=== PATIENT | female | born 1970 ===

== ENCOUNTER 2017-06-01 09:08 | Emergency (ER) | payer OTHER ==
[2017-06-01 09:20] VITALS: BP 123/78; PULSE 73; RESP 16; TEMP 98.1; O2SAT 98
--- NOTE | 2017-06-01 09:38 | C.PDOC ---
History Of Present Illness 47 y/o female presents to ED with complaints of pain and swelling to right forearm for 3 days. 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 Pain is 5/10 , non radiating with associated swelling. . Patient denies trauma, fever, chills, n/v/d or any other complaints at this time. Time Seen by Provider: 06/01/17 09:23 Chief Complaint (Nursing): Upper Extremity Problem/Injury History Per: Patient History/Exam Limitations: no limitations Onset/Duration Of Symptoms: Days Current Symptoms Are (Timing): Still Present Quality: "Pain" Exacerbating Factor(s): Movement Past Medical History Reviewed: Historical Data, Nursing Documentation, Vital Signs Vital Signs: Last Vital Signs Temp 98.1 F 06/01/17 09:18 Pulse 73 06/01/17 09:18 Resp 16 06/01/17 09:18 BP 123/78 06/01/17 09:18 Pulse Ox 98 06/01/17 12:35 - Medical History PMH: Gastritis, Gall Bladder Disease Denies: Chronic Kidney Disease Surgical History: Cholecystectomy - [facility] Procedures EXTRACTION OF ENDOMETRIUM, VIA OPENING, DIAGN (08/28/16) Family History: States: Unknown Family Hx - Social History Hx Tobacco Use: No Hx Alcohol Use: No Hx Substance Use: No - Immunization History Hx Tetanus Toxoid Vaccination: No Hx Influenza Vaccination: Yes Hx Pneumococcal Vaccination: No Review Of Systems Except As Marked, All Systems Reviewed And Found Negative. Constitutional: Negative for: Fever, Chills Gastrointestinal: Negative for: Nausea, Vomiting, Diarrhea Musculoskeletal: Positive for: Arm Pain Skin: Negative for: Rash, Bruising Physical Exam - Physical Exam Appears: Non-toxic, No Acute Distress Skin: Normal Color, Warm Head: Atraumatic, Normacephalic Oral Mucosa: Moist Extremity: Tenderness (Tenderness to volar aspect of forearm), Capillary Refill (<2 seconds), No Deformity, Swelling (Swelling to volar aspect of forearm), Other (Full ROM of forearm bilateral) Neurological/Psych: Oriented x3, Normal Motor, Normal Sensation, Normal Reflexes ED Course And Treatment O2 Sat by Pulse Oximetry: 98 (RA) Pulse Ox Interpretation: Normal Medical Decision Making Medical Decision Making: Patient was given Motrin, Tylenol and forearm was put in yulisa wrap. Patient discharged and advised to rest and ice elevation Note for work was given Disposition Counseled Patient/Family Regarding: Diagnosis, Need For Followup, Rx Given - Disposition Referrals: [facility] [Outside] Disposition: HOME/ ROUTINE Disposition Time: 09:57 Condition: STABLE Prescriptions: Ibuprofen [Motrin] 600 mg PO TID #15 tab Instructions: RICE Therapy (ED) Forms: Gen Discharge Inst Turkish, Work Excuse - POA Present On Arrival: None - Clinical Impression Clinical Impression: Muscle strain - Scribe Statement The provider has reviewed the documentation as recorded by the Annemarieibluis antonio Hill All medical record entries made by the Annemarieibluis antonio were at my direction and personally dictated by me. I have reviewed the chart and agree that the record accurately reflects my personal performance of the history, physical exam, medical decision making, and the department course for this patient. I have also personally directed, reviewed, and agree with the discharge instructions and disposition.
== END 2017-06-01 10:04 | disposition home or self-care (01) ==
LOC: C.ER 09:08
DX: S56.911A Strain of unspecified muscles, fascia and tendons at forearm level, right arm, initial encounter (principal); X50.9XXA Other and unspecified overexertion or strenuous movements or postures, initial encounter; Y93.89 Activity, other specified; Y92.89 Other specified places as the place of occurrence of the external cause

== ENCOUNTER 2017-12-24 08:14 | Emergency (ER) | payer OTHER ==
[2017-12-24 08:53] VITALS: BMI 23.3
--- NOTE | 2017-12-24 09:00 | C.PDOC ---
Time Seen by Provider: 12/24/17 08:37 Chief Complaint (Nursing): Chest Pain Past Medical History Vital Signs: Last Vital Signs Temp 100.2 F H 12/24/17 08:26 Pulse 102 H 12/24/17 08:26 Resp 18 12/24/17 08:26 BP 123/84 12/24/17 08:26 Pulse Ox 95 12/24/17 08:26 - Medical History PMH: Gastritis, Gall Bladder Disease Denies: Chronic Kidney Disease Surgical History: Cholecystectomy - [facility] Procedures EXTRACTION OF ENDOMETRIUM, VIA OPENING, DIAGN (08/28/16) Family History: States: Unknown Family Hx - Social History Hx Tobacco Use: No Hx Alcohol Use: No Hx Substance Use: No - Immunization History Hx Tetanus Toxoid Vaccination: No Hx Influenza Vaccination: Yes Hx Pneumococcal Vaccination: No ED Course And Treatment O2 Sat by Pulse Oximetry: 95 Disposition - Disposition
--- NOTE | 2017-12-24 09:01 | C.PDOC ---
History Of Present Illness 47 year old female presents to the ED c/o cough, chest pain, sore throat, subjective fever for the past 4 days. Patient reports while at work she inhaled a lot of dust after which she started to feel her symptoms. Patient states she has no prior history of asthma. Patient denies SOB, nausea, vomit, diarrhea, abdominal pain. Time Seen by Provider: 12/24/17 08:37 History Per: Patient History/Exam Limitations: no limitations Onset/Duration Of Symptoms: Days Current Symptoms Are (Timing): Still Present Recent travel outside of the [place]: No Additional History Per: Patient Past Medical History Reviewed: Historical Data, Nursing Documentation, Vital Signs Vital Signs: Last Vital Signs Temp 100.2 F H 12/24/17 08:26 Pulse 102 H 12/24/17 08:26 Resp 18 12/24/17 08:26 BP 123/84 12/24/17 08:26 Pulse Ox 95 12/24/17 09:21 - Medical History PMH: Gastritis, Gall Bladder Disease Denies: Chronic Kidney Disease Surgical History: Cholecystectomy - [place] Procedures EXTRACTION OF ENDOMETRIUM, VIA OPENING, DIAGN (08/28/16) Family History: States: Unknown Family Hx - Social History Hx Tobacco Use: No Hx Alcohol Use: No Hx Substance Use: No - Immunization History Hx Tetanus Toxoid Vaccination: No Hx Influenza Vaccination: Yes Hx Pneumococcal Vaccination: No Review Of Systems Constitutional: Positive for: Fever. Negative for: Chills ENT: Positive for: Throat Pain. Negative for: Nose Congestion Cardiovascular: Positive for: Chest Pain Respiratory: Positive for: Cough. Negative for: Shortness of Breath Gastrointestinal: Negative for: Nausea, Vomiting, Abdominal Pain Musculoskeletal: Negative for: Neck Pain Skin: Negative for: Rash Neurological: Negative for: Weakness, Numbness Physical Exam - Physical Exam Appears: Non-toxic, No Acute Distress Skin: Normal Color, Warm, Dry Head: Atraumatic, Normacephalic Eye(s): bilateral: Normal Inspection Nose: No Discharge, No Deformity Oral Mucosa: Moist Neck: Normal ROM, Supple Chest: Symmetrical Cardiovascular: Rhythm Regular, No Murmur Respiratory: Normal Breath Sounds, No Rales, No Rhonchi, No Wheezing Gastrointestinal/Abdominal: Soft, No Tenderness, No Guarding, No Rebound Extremity: Normal ROM, No Deformity, No Swelling Neurological/Psych: Oriented x3, Normal Speech, Normal Cognition Gait: Steady ED Course And Treatment ECG: Interpreted By Me, Viewed By Me ECG Rhythm: Sinus Tachycardia Rate From EC O2 Sat by Pulse Oximetry: 95 (On RA) Pulse Ox Interpretation: Normal Medical Decision Making Medical Decision Making: Impression: cough, chest pain, sore throat. Plan: * EKG * CXR * Albuterol 2.5 INH * Toradol 60 mg IM * Nebulizer treatment Disposition Counseled Patient/Family Regarding: Studies Performed, Diagnosis, Need For Followup - Disposition Referrals: [facility] [Outside] [facility] [Outside] Disposition: HOME/ ROUTINE Disposition Time: :19 Condition: IMPROVED Prescriptions: Benzonatate [Tessalon Perles] 200 mg PO TID PRN #15 sgl PRN Reason: Cough Instructions: Upper Respiratory Infection (ED) Forms: [facility] (Northern Irish), Work Excuse Print Language: NORWEGIAN - Clinical Impression Clinical Impression: URI (upper respiratory infection) - Scribe Statement The provider has reviewed the documentation as recorded by the Scribe Eric Hernandez All medical record entries made by the Scribe were at my direction and personally dictated by me. I have reviewed the chart and agree that the record accurately reflects my personal performance of the history, physical exam, medical decision making, and the department course for this patient. I have also personally directed, reviewed, and agree with the discharge instructions and disposition.
[2017-12-24] MEDS ORDERED: Albuterol 0.083% Inhal Sol (2.5 mg/3 mL) UD INH STA (09:03)
[2017-12-24] MEDS ORDERED: Albuterol 0.083% Inhal Sol (2.5 mg/3 mL) UD ONE (09:28)
[2017-12-24 10:37] VITALS: BP 122/70; PULSE 75; RESP 16; TEMP 98.3; O2SAT 99
--- NOTE | 2017-12-24 10:41 | RAD ---
HISTORY: cp COMPARISON: No prior. TECHNIQUE: Chest PA and lateral FINDINGS: LUNGS: Mild bibasilar atelectasis. PLEURA: No significant pleural effusion identified. No pneumothorax apparent. CARDIOVASCULAR: Normal. OSSEOUS STRUCTURES: No significant abnormalities. VISUALIZED UPPER ABDOMEN: Normal. OTHER FINDINGS: None. IMPRESSION: Mild bibasilar atelectasis.
--- NOTE | 2017-12-25 12:22 | CARD ---
APPROVED REPORT EKG Measurement Heart [id number] VT 130P41 [id number] <Conclusion> Sinus tachycardia Minimal voltage criteria for LVH, may be normal variant Nonspecific T wave abnormality Abnormal ECG
== END 2017-12-24 10:36 | disposition home or self-care (01) ==
LOC: C.ER 08:14
DX: J06.9 Acute upper respiratory infection, unspecified (principal)
CPT/HCPCS: 71046; 93005; 94150; 94640; 96372; 99285; J1885

== ENCOUNTER 2018-02-19 10:34 | Emergency (ER) | payer OTHER ==
[2018-02-19 10:34] VITALS: BMI 30.9
[2018-02-19 10:43] VITALS: BP 133/83; PULSE 82; RESP 18; TEMP 98; O2SAT 97
[2018-02-19] MEDS ORDERED: Sodium Chloride 0.9% 1,000 ML IV ONE (11:09)
[2018-02-19 11:27] LABS: BASO % 0.6 % (0.0-2.0); EOS % 0.4 % (0.0-4.0); HEMOGLOBIN 13.6 g/dL (11.0-16.0); LYMPH % 13.4 % (20.0-40.0); MEAN CORPUSCULAR HEMOGLOBIN 30.2 pg (27.0-31.0); MEAN CORPUSCULAR HGB CONC 34.9 g/dL (33.0-37.0); MEAN PLATELET VOLUME 8.3 fL (7.2-11.7); MONO # 0.2 K/uL (0.0-0.8); MONO % 2.6 % (0.0-10.0); NEUT # 6.5 K/uL (1.8-7.0); RBC 4.5 Mil/uL (3.80-5.20); RED CELL DISTRIBUTION WIDTH 13.4 % (11.5-14.5); WHITE BLOOD COUNT 7.8 K/uL (4.8-10.8)
[2018-02-19 11:31] LABS: MEAN CELL VOLUME 86.5 fL (81.0-99.0)
[2018-02-19 11:45] LABS: SQUAMOUS EPITHIAL 8 /hpf (0-5); URINE BACTERIA RARE (<OCC); URINE BILIRUBIN NEGATIVE (NEGATIVE); URINE BLOOD 1+ (NEGATIVE); URINE CLARITY Hazy (Clear); URINE COLOR Yellow (YELLOW); URINE GLUCOSE (UA) NORMAL (Normal); URINE LEUKOCYTE ESTERASE 1+ Leu/uL (Negative); URINE PROTEIN NEGATIVE (NEGATIVE); URINE UROBILINOGEN NORMAL mg/dL (0.2-1.0)
--- NOTE | 2018-02-19 11:48 | CT ---
PROCEDURE: CT HEAD WITHOUT CONTRAST. HISTORY: R/O Bleed COMPARISON: None available. TECHNIQUE: Axial computed tomography images were obtained through the head/brain without intravenous contrast. Radiation dose: Total exam DLP = 910.66 mGy-cm. This CT exam was performed using one or more of the following dose reduction techniques: Automated exposure control, adjustment of the mA and/or kV according to patient size, and/or use of iterative reconstruction technique. FINDINGS: HEMORRHAGE: No intracranial hemorrhage. BRAIN: No mass effect or edema. No atrophy or chronic microvascular ischemic changes. VENTRICLES: Unremarkable. No hydrocephalus. CALVARIUM: Unremarkable. PARANASAL SINUSES: Unremarkable as visualized. No significant inflammatory changes. MASTOID AIR CELLS: Unremarkable as visualized. No inflammatory changes. OTHER FINDINGS: None. IMPRESSION: Normal CT of the Head. No intracranial hemorrhage.
[2018-02-19] MEDS ORDERED: Sodium Chloride 0.9% 1,000 ML ONE (11:49)
[2018-02-19 11:51] LABS: ALB/GLOB RATIO 1.3 (1.0-2.1); ALBUMIN 4.4 g/dL (3.5-5.0); ALT/SGPT 22 U/L (9-52); AST/SGOT 22 U/L (14-36); BLOOD UREA NITROGEN 10 mg/dL (7-17); CALCIUM 8.9 mg/dl (8.6-10.4); GFR AFRICAN-AMERICAN > 60; GFR NON-AFRICAN AMERICAN > 60
--- NOTE | 2018-02-19 14:58 | C.PDOC ---
History Of Present Illness 47 y/o female presents to the ER complaining of dizziness which began at 3 am today. Patient states that she also has mild nausea. Patient denies having chest pain, SOB, fever,chills, and cough. Chief Complaint (Nursing): Dizziness/Lightheaded History Per: Patient History/Exam Limitations: no limitations Onset/Duration Of Symptoms: Hrs Current Symptoms Are (Timing): Still Present Severity: Moderate Past Medical History Reviewed: Historical Data, Nursing Documentation, Vital Signs Vital Signs: Last Vital Signs Temp 98 F 02/19/18 10:40 Pulse 82 02/19/18 10:40 Resp 18 02/19/18 10:40 BP 133/83 02/19/18 10:40 Pulse Ox 97 02/19/18 18:08 - Medical History PMH: Gastritis, Gall Bladder Disease Denies: Chronic Kidney Disease Surgical History: Cholecystectomy - [facility] Procedures EXTRACTION OF ENDOMETRIUM, VIA OPENING, DIAGN (08/28/16) Family History: States: No Known Family Hx - Social History Hx Tobacco Use: No Hx Alcohol Use: No Hx Substance Use: No - Immunization History Hx Tetanus Toxoid Vaccination: No Hx Influenza Vaccination: Yes Hx Pneumococcal Vaccination: No Review Of Systems Except As Marked, All Systems Reviewed And Found Negative. Constitutional: Negative for: Fever, Chills Cardiovascular: Negative for: Chest Pain Respiratory: Negative for: Cough, Shortness of Breath Gastrointestinal: Positive for: Nausea Neurological: Positive for: Dizziness Physical Exam - Physical Exam Appears: Non-toxic, No Acute Distress Skin: Normal Color, Warm Head: Atraumatic, Normacephalic Eye(s): bilateral: Normal Inspection Nose: Normal Oral Mucosa: Moist Chest: Symmetrical Cardiovascular: Rhythm Regular Respiratory: Normal Breath Sounds, No Rales, No Rhonchi, No Wheezing Gastrointestinal/Abdominal: Soft, No Tenderness Neurological/Psych: Oriented x3, Normal Speech ED Course And Treatment - Laboratory Results Result Diagrams: 02/19/18 11:24 02/19/18 11:24 ECG: Interpreted By Me, Viewed By Me ECG Rhythm: Sinus Rhythm ECG Interpretation: Normal Rate From EC O2 Sat by Pulse Oximetry: 97 (RA) Pulse Ox Interpretation: Normal - CT Scan/US CT-Head Other Rad Studies (CT/US): Read By Radiologist, Radiology Report Reviewed CT/US Interpretation: PROCEDURE: CT HEAD WITHOUT CONTRAST. HISTORY: R/O Bleed. COMPARISON: None available. TECHNIQUE: Axial computed tomography images were obtained through the head/brain without intravenous contrast. Radiation dose: Total exam DLP = 910.66 mGy-cm. This CT exam was performed using one or more of the following dose reduction techniques: Automated exposure control, adjustment of the mA and/or kV according to patient size, and/ or use of iterative reconstruction technique. FINDINGS: HEMORRHAGE: No intracranial hemorrhage. BRAIN: No mass effect or edema. No atrophy or chronic microvascular ischemic changes. VENTRICLES: Unremarkable. No hydrocephalus. CALVARIUM: Unremarkable. PARANASAL SINUSES: Unremarkable as visualized. No significant inflammatory changes. MASTOID AIR CELLS: Unremarkable as visualized. No inflammatory changes. OTHER FINDINGS: None. IMPRESSION: Normal CT of the Head. No intracranial hemorrhage. Progress Note: Labs, UA, and CT-Head ordered.Patient given Antivert PO, Reglan IV,and IV Fluids. On re-evaluation, patient feels better. Patient has been discharged and told to follow up with PCP. Disposition - Disposition Referrals: [facility] [Outside] [facility] [Outside] Disposition: HOME/ ROUTINE Disposition Time: 12:00 Condition: IMPROVED Additional Instructions: Thank you for letting us take care of you today. The emergency medical care you received today was directed at your acute symptoms. If you were prescribed any medication, please fill it and take as directed. It may take several days for your symptoms to resolve. Return to the Emergency Department if your symptoms worsen, do not improve, or if you have any other problems. Please contact your doctor or call one of the physicians/clinics you have been referred to that are listed on the Patient Visit Information form that is included in your discharge packet. Bring any paperwork you were given at discharge with you along with any medications you are taking to your follow up visit. Our treatment cannot replace ongoing medical care by a primary care provider (PCP) outside of the emergency department. Thank you for allowing the [facility] team to be part of your care today. Follow up with your doctor this week for re-evaluation and further management. Mansi por dejarnos atenderlo hoy. La atencin mdica de emergencia que recibi hoy estaba dirigida a katherine sntomas agudos. Si le prescribieron algn medicamento, llnelo y tome segn las indicaciones. Katherine sntomas pueden tardar varios marcial en resolverse. Regrese al Departamento de Emergencia si katherine s ntomas empeoran, no mejoran o si tiene algn otro problema. Comunquese con le mdico o llame a karen de los mdicos / clnicas a los que kulkarni sido referido que figura en el formulario de Informacin de visita del paciente que se incluye en le paquete de tammie. Traiga todos los documentos que recibi al momento del tammie junto con los medicamentos que est tomando en le visita de seguimiento. Nuestro tratamiento no puede reemplazar la atencin mdica en curso por parte de un proveedor de atencin primaria (PCP) fuera del departamento de emergencias. Mansi por permitir que el equipo de [facility] sea parte de le cuidado hoy. Max un seguimiento con le mdico esta semana para walter reevaluacin y administracin adicional. Prescriptions: Meclizine [Meclizine*] 25 mg PO Q6 PRN #20 tab PRN Reason: Dizziness Instructions: Vertigo (a Type of Dizziness) (DC) Forms: Gen Discharge Inst Tanzanian, Work Excuse Print Language: BURMESE - Clinical Impression Clinical Impression: Dizziness - Scribe Statement The provider has reviewed the documentation as recorded by the Scribe Ney Loredo Provider Attestation: All medical record entries made by the Scribe were at my direction and personally dictated by me. I have reviewed the chart and agree that the record accurately reflects my personal performance of the history, physical exam, medical decision making, and the department course for this patient. I have also personally directed, reviewed, and agree with the discharge instructions and disposition.
--- NOTE | 2018-02-20 11:24 | CARD ---
APPROVED REPORT EKG Measurement Heart [id number] HI 134P43 [id number] <Conclusion> Normal sinus rhythm Moderate voltage criteria for LVH, may be normal variant Borderline ECG
== END 2018-02-19 13:12 | disposition home or self-care (01) ==
LOC: C.ER 10:34
DX: R42 Dizziness and giddiness (principal)
CPT/HCPCS: 70450; 80053; 81001; 84484; 85025; 93005; 96361; 96374; 99285; J2765; J7040

== ENCOUNTER 2019-01-16 09:48 | Outpatient (CLI) | payer OTHER | END 2019-01-16 09:49 | disposition home or self-care (01) | LOC: C.USIC 09:48 | DX: N64.52 Nipple discharge (principal) ==

== ENCOUNTER 2019-02-28 13:25 | Outpatient (CLI) | payer OTHER | END 2019-02-28 13:26 | disposition home or self-care (01) | LOC: C.MAMMO 13:25 | DX: Z12.31 Encounter for screening mammogram for malignant neoplasm of breast (principal) ==